=== PATIENT | male | born 1930 | race African-American/Black ===

== ENCOUNTER 2016-07-23 08:34 | Emergency (ER) | payer MEDICARE ==
[~2016-07-23] VITALS: Ht 175.3 cm; Wt 76.2 kg
--- NOTE | 2016-07-23 08:46 | Emergency Room Report ---
History of Present Illness General Chief Complaint: Abnormal Labs Source: Patient, EMS Present Illness HPI The patient presents with altered mental status. In addition to that his blood sugar was 30 in the field. Paramedics treated the patient with glucagon. He was still unresponsive comes in here. There is no history of diabetes or low blood sugar in the past. He is a dialysis patient. Dialysis MWF. No further history is available aside from what is on a halfway facility paperwork. EMS denied any other medical problems. Allergies: Coded Allergies: No Known Allergies (Unverified , 07/23/16) Patient History Limited by: medical condition Past Medical History: see triage record Past Surgical History: other - fistula Social History Narrative SNF - has [facility] Reviewed Nursing Documentation: PMH: Agreed, PSxH: Agreed Review of Systems All Other Systems: limited Physical Exam Vital Signs Date Time Temp Pulse Resp B/P Pulse Ox O2 Delivery O2 Flow Rate FiO2 07/23/16 08:32 98.4 86 13 152/78 95 Room Air Sp02 EP Interpretation: reviewed, normal General Appearance: alert, other - GCS 14 now, Chronically Ill Head: normocephalic Eyes: bilateral eye PERRL, bilateral eye normal inspection ENT: moist mucus membranes Neck: supple Respiratory: crackles, rales Cardiovascular #1: no edema, JVD, diastolic murmur, systolic murmur, friction rub Cardiovascular #2: 2+ radial (R) - shunt/fistula Gastrointestinal: normal inspection, normal bowel sounds, non tender, no mass, non-distended Musculoskeletal: back normal Neurologic: alert, motor strength/tone normal, DTRs symmetric, sensory intact, oriented - X2 Psychiatric: mood/affect normal Reflexes: 2+ knee (R), 2+ knee (L) Skin: normal inspection, warm/dry, other - lesions lower legs Procedures Critical Care Time Critical Care Time Total Critical Care Time: 30 min bedside evaluation and treatment excludes procedures (EKG). Reason for critical care: repeated evaluation and treatment of hypoglycemia Possible complications: hypotension, hypertension, PR, shock, arrhythmias, metabolic acidosis, end organ damage, respiratory failure. Interventions: D50 W and increasing doses of D10W. Course: Patient with hypoglycemia. Treated with glucagon in field. Still low blood sugar. Improved mentation. Repeated glucose checks with hypoglycemia leading to repeated dosing with D50W and increasing dosing of D10W. Patient's mentation repeatedly evaluated. Transferred to [place] improved but serious. Consultations: nursing staff, EMS, [place] Performed by: Dr. Saleem Tolerated well condition = serious Medical Decision Making Diagnostic Impression: Primary Impression: Hypoglycemia Additional Impression: ESRD (end stage renal disease) on dialysis ER Course Patient presents with hypoglycemia and lower lungs sounds. Differential includes sepsis, new onset diabetes, inadvertent medication mixup, renal failure amongst others. Emergent evaluation is undertaken with EKG, labs, chest x-ray including blood culture lactate. In addition to that the patient will receive D50W. This complicated patient in light of the fact that he has systolic and diastolic murmurs and rales. Labs with CRF. No need for acute dialysis. Also CXR with some infiltrates ( could be CHF from ESRD). Repeat accucheck @ 11:10 - critically low. D50 repeated and D10 started. Calling [place]. Accepted by Dr. Ortiz. 14:22 - glucose 43 on 100 ml D10. Giving another bolus and increasing rate of D10W to 200 ml/hr. Will stabilize glucose before transfer. Final glucose 88, had received 2 doses of D50W. Laboratory Tests Test 07/23/16 08:46 07/23/16 09:00 White Blood Count 13.9 K/UL (4.8-10.8) H Red Blood Count 3.80 M/UL (4.70-6.10) L Hemoglobin 11.9 G/DL (14.2-18.0) L Hematocrit 38.6 % (42.0-52.0) L Mean Corpuscular Volume 102 FL (80-99) H Mean Corpuscular Hemoglobin 31.3 PG (27.0-31.0) H Mean Corpuscular Hemoglobin Concent 30.8 G/DL (32.0-36.0) L Red Cell Distribution Width 13.0 % (11.6-14.8) Platelet Count 267 K/UL (150-450) Mean Platelet Volume 8.4 FL (6.5-10.1) Neutrophils (%) (Auto) % (45.0-75.0) Lymphocytes (%) (Auto) % (20.0-45.0) Monocytes (%) (Auto) % (1.0-10.0) Eosinophils (%) (Auto) % (0.0-3.0) Basophils (%) (Auto) % (0.0-2.0) Differential Total Cells Counted 100 Neutrophils % (Manual) 88 % (45-75) H Lymphocytes % (Manual) 5 % (20-45) L Monocytes % (Manual) 5 % (1-10) Eosinophils % (Manual) 1 % (0-3) Basophils % (Manual) 0 % (0-2) Metamyelocytes % 1 % (0-0) H Band Neutrophils 0 % (0-8) Platelet Estimate Adequate Platelet Morphology Normal Red Blood Cell Morphology Hypochromasia 1+ Anisocytosis 1+ Macrocytosis 1+ Sodium Level 142 mEQ/L (135-145) Potassium Level 4.4 mEQ/L (3.4-4.9) Chloride Level 100 mEQ/L (98-107) Carbon Dioxide Level 27 mEQ/L (20-30) Anion Gap 15 (5-15) Blood Urea Nitrogen 38 mg/dL (7-23) H Creatinine 3.1 mg/dL (0.7-1.2) H Estimate Glomerular Filtration Rate mL/min (>60) Glucose Level 41 mg/dL (74-106) L Calcium Level 9.5 mg/dL (8.6-10.2) Total Bilirubin 0.4 mg/dL (0.0-1.2) Aspartate Amino Transferase (AST) 37 U/L (5-40) Alanine Aminotransferase (ALT) 36 U/L (3-41) Alkaline Phosphatase 89 U/L (40-129) Total Creatine Kinase 15 U/L (38-174) L Troponin I < 0.30 ng/mL (<=0.30) Pro-B-Type Natriuretic Peptide > 22537 pg/mL (0-450) H Total Protein 6.9 g/dL (6.6-8.7) Albumin 3.8 g/dL (3.5-5.2) Globulin 3.1 g/dL Albumin/Globulin Ratio 1.2 (1.0-2.7) Prothrombin Time 11.8 SEC (9.30-11.50) H Prothrombin Time INR 1.2 (0.9-1.1) H PTT 31 SEC (23-33) Lactic Acid Level 1.00 mmol/L (0.66-2.22) EKG Diagnostic Results Rate: normal Rhythm: NSR ST Segments: no acute changes - lvh Rhythm Strip Diag. Results EP Interpretation: yes Rhythm: NSR, no PVC's, no ectopy Chest X-Ray Diagnostic Results EP Interpretation: Yes Findings: no effusion, no pneumothorax, other - CHF vs RUL infiltrate Number of Views: 1 Last Vital Signs Date Time Temp Pulse Resp B/P Pulse Ox O2 Delivery O2 Flow Rate FiO2 07/23/16 16:01 97.6 76 19 156/52 99 Room Air Status: improved Disposition: [facility] H[facility] - [place] Condition: Serious - stable for transfer Neo Saleem M.D. Jul 23, 2016 08:45
[2016-07-23 09:05] LABS: MEAN CORPUSCULAR HEMOGLOBIN 31.3 PG (27.0-31.0); MEAN CORPUSCULAR HGB CONC 30.8 G/DL (32.0-36.0); MEAN CORPUSCULAR VOLUME 102 FL (80-99); MEAN PLATELET VOLUME 8.4 FL (6.5-10.1); PLATELET COUNT 267 K/UL (150-450); WHITE BLOOD COUNT 13.9 K/UL (4.8-10.8)
[2016-07-23] MEDS ORDERED: COLACE250 MG ORAL (09:06)
[2016-07-23] MEDS ORDERED: FLONASE ALLERG9.9 ML NS (09:06)
[2016-07-23] MEDS ORDERED: DULCOLAX10 MG RC (09:06)
[2016-07-23] MEDS ORDERED: METOPROLOL TART25 MG ORAL (09:06)
[2016-07-23] MEDS ORDERED: KEFLEX500 MG ORAL (09:06)
[2016-07-23] MEDS ORDERED: ASPIR 8181 MG ORAL (09:06)
[2016-07-23] MEDS ORDERED: SENSIPAR30 MG ORAL (09:06)
[2016-07-23] MEDS ORDERED: MINERAL OIL EN133 ML RC (09:07)
[2016-07-23 09:10] LABS: ALANINE AMINOTRANSFERASE 36 U/L (3-41); ALBUMIN/GLOBULIN RATIO 1.2 (1.0-2.7); ANION GAP 15 (5-15); ASPARTATE AMINO TRANSFERASE 37 U/L (5-40); CALCIUM 9.5 mg/dL (8.6-10.2); CARBON DIOXIDE 27 mEQ/L (20-30); CHLORIDE 100 mEQ/L (98-107); CREATININE 3.1 mg/dL (0.7-1.2); HEMOLYSIS 8; POTASSIUM 4.4 mEQ/L (3.4-4.9); SODIUM 142 mEQ/L (135-145); TOTAL PROTEIN 6.9 g/dL (6.6-8.7)
[2016-07-23] MEDS ORDERED: ZINC SULFATE220 M1 ORAL (09:10)
[2016-07-23] MEDS ORDERED: RENVELA2.4 GM ORAL (09:10)
[2016-07-23] MEDS ORDERED: SORBITOL 70%30 ML GT (09:10)
[2016-07-23] MEDS ORDERED: MULTI VITAMIN1 EACH ORAL (09:10)
[2016-07-23] MEDS ORDERED: SENNA8.6 M2 PO (09:10)
[2016-07-23] MEDS ORDERED: TYLENOL EXTRA500 MG ORAL (09:10)
[2016-07-23 09:11] LABS: TROPONIN I < 0.30 ng/mL (<=0.30)
[2016-07-23] MEDS ORDERED: cefTRIAXone 1 GM in NS 55 ML IVPB ONE (09:30)
[2016-07-23] MEDS ORDERED: Azithromycin 500 MG in NS 275 ML IV ONE (09:30)
[2016-07-23] MEDS ORDERED: Azithromycin Inj IV ONE (09:48)
[2016-07-23 09:53] VITALS: BP 178/55
[2016-07-23 10:09] LABS: BAND NEUTROPHILS % (MANUAL) 0 % (0-8); BASOPHILS % (MANUAL) 0 % (0-2); EOSINOPHILS % (MANUAL) 1 % (0-3); LYMPHOCYTES % (MANUAL) 5 % (20-45); METAMYELOCYTES % 1 % (0-0); NEUTROPHILS % (MANUAL) 88 % (45-75); PLATELET ESTIMATE ADEQUATE; TOTAL CELLS COUNTED 100
[2016-07-23 10:10] LABS: ANISOCYTOSIS 1+; HYPOCHROMASIA 1+; MACROCYTES 1+; PLATELET MORPHOLOGY NORMAL
[2016-07-23 10:12] LABS: INR 1.2 (0.9-1.1); PROTHROMBIN TIME 11.8 SEC (9.30-11.50)
--- NOTE | 2016-07-23 10:12 | Diagnostic Imaging Report ---
Indication: Shortness of breath Technique: One view of the chest Comparison: none Findings: Reticulonodular opacities are seen in the right upper lobe. The remainder the lungs and pleural spaces are clear. The heart size is borderline enlarged. There is tortuous ectatic and calcified. Impression: Right upper lobe reticular and nodular opacities, suspect chronic. Correlate with clinical findings Borderline cardiomegaly
[2016-07-23 11:09] VITALS: BP 141/52
[2016-07-23] MEDS ORDERED: Dextrose 10% 1,000 ML IV SCH (11:15)
[2016-07-23 12:19] VITALS: BP 167/67
[2016-07-23 14:40] VITALS: BP 156/52
[2016-07-23 16:01] VITALS: BP 156/52
--- NOTE | 2016-07-24 13:03 | Emergency Room Report ---
Physical Exam Vital Signs Date Time Temp Pulse Resp B/P Pulse Ox O2 Delivery O2 Flow Rate FiO2 07/23/16 08:32 98.4 86 13 152/78 95 Room Air Medical Decision Making Diagnostic Impression: Primary Impression: Hypoglycemia Additional Impressions: ESRD (end stage renal disease) on dialysis Bacteremia due to Gram-positive bacteria ER Course Informed by lab patient had gram+ cocci in blood Cx. I reviewed chart, patient was transferred to [place] by Dr Saleem Gave this info to FESTUS Rasmussen to inform [place]. Last Vital Signs Date Time Temp Pulse Resp B/P Pulse Ox O2 Delivery O2 Flow Rate FiO2 07/23/16 16:01 97.6 76 19 156/52 99 Room Air Disposition: SHORT-TERM HOSP Condition: Serious Referrals: [facility] (PCP) KRIS QUIROGA M.D. Jul 24, 2016 13:03
--- NOTE | 2016-07-27 22:40 | Cardiology Report ---
APPROVED REPORT EKG Measurement Heart [id number] Normal sinus rhythm Possible Left atrial enlargement Left ventricular hypertrophy ischemia Prolonged QT Abnormal ECG
== END 2016-07-23 16:01 | disposition short-term general hospital (02) ==
LOC: EDBD 08:34 → EMR 09:12
DX: E16.2 Hypoglycemia, unspecified (principal); N18.6 End stage renal disease; Z99.2 Dependence on renal dialysis; R78.81 Bacteremia; B96.89 Other specified bacterial agents as the cause of diseases classified elsewhere
CPT/HCPCS: 36415; 71010; 80053; 82550; 82962; 83605; 83880; 84484; 85007; 85025; 85610; 85730; 87040; 87081; 87181; 93005; 96360; 96361; 96374; 96375; 99285; J0360; J0456; J0696; J7050